=== PATIENT | female | born 1965 | race Caucasian/White ===

== ENCOUNTER 2024-03-31 10:47 | Emergency (ER) | payer OTHER, SELFPAY ==
[2024-03-31 10:50] VITALS: BP 146/91
--- NOTE | 2024-03-31 11:36 | ED.GENMED ---
History of Present Illness
General
Chief Complaint: Abdominal Pain
Source: patient
Exam Limitations: none
Time Seen by Provider: 03/31/24 11:03
Nursing documentation reviewed up to this point in time: agreed with
History of Present Illness
History of Present Illness:
58-year-old female presenting with 2 days of left lower abdominal pain. Symptoms initially started evening when she had multiple bouts of diarrhea and noticed pain in her left lower abdomen. Pain persisted throughout the day yesterday and
was even worse this morning prompting her visit to the emergency department. Patient states it feels like a squeezing/intense pain in her left lower abdomen with some radiation into her left thigh. Pain is definitely worse with movement. No known
inciting injury/trauma. Patient denies any associated fevers, chills, nausea, vomiting, or urinary symptoms. No chest pain or shortness of breath. Patient denies any hematochezia or melena.
Patient with known history of thrombocytosis of unknown origin and remote history of ovarian cyst. Patient has been postmenopausal for 5 years now. No history of abdominal surgeries.
Past History
Past History
ED Past Medical History: Other (Ovarian cyst) and Other (Thrombocytosis)
Review of Systems
Review of Systems
Allergies reviewed?: Yes
All Other Systems: ROS reviewed and negative except as documented in HPI and ROS
Phy Exam
Physical Exam
Physical Exam:
Vitals: Hypertensive, otherwise vital signs stable. Afebrile
General: Patient is mildly uncomfortable due to pain, nontoxic-appearing
Skin: Warm and dry, no rashes or lesions
Head: Normocephalic, atraumatic
Eyes: Sclera nonicteric. EOMs intact. No nystagmus.
Throat: Protecting airway
Neck: Normal ROM, no cervical spine tenderness, no meningismus
Cardiac: Regular rate and rhythm, no murmurs.
Pulm: Normal respiratory effort, no wheezes, rales, rhonchi heard on exam.
Abdomen: Abdomen soft. Moderate tenderness left lower quadrant with some mild tenderness in right lower quadrant. No rebound tenderness or guarding. No CVA tenderness. No rashes
Extremities: No evidence of cyanosis or edema. Great distal pulses
Neuro: AAOx3. CN II-XII intact. No focal neurologic deficits.
Psychiatric: Normal affect.
Course
Orders/Labs/Results
Orders:
Orders
03/31/24 11:36
0.9% Sodium Chloride 1000 ml [Nss] 1,000 ml IV BOLUS
Ketorolac [Toradol] 15 mg IV NOW STA
Ondansetron Injectable [Zofran] 4 mg IV NOW STA
03/31/24 11:38
CT Abd/Pel (IV only)-DH only Urgent
Comment: hx left ovarian cyst
Reason For Exam: LLQ pain, +diarrhea
03/31/24 11:47
Complete Blood Count/With Diff Urgent
Comprehensive Metabolic Panel Urgent
Lipase Urgent
03/31/24 12:03
Urinalysis Reflex To Culture Urgent
Date Specimen was Collected: 03/31/24
Time Specimen was Collected: 12:02
03/31/24 13:52
Amoxicillin 875 mg/Clav 125 mg [Augmentin 875 mg/125 mg] 1 tablet PO NOW STA
Abnormal Lab Results
03/31/24
11:47
WBC 11.2 H 10^3/uL
(4.8-10.8)
Plt Count 498 H 10^3/uL
(130-400)
MPV 11.4 H fL
(7.4-10.4)
Absolute Neuts (auto) 8.9 H 10^3/uL
(1.4-6.5)
Absolute Lymphs (auto) 1.1 L 10^3/uL
(1.2-3.4)
Absolute Monos (auto) 0.9 H 10^3/uL
(0.1-0.6)
Neutrophils % 80.0 H %
(42.2-75.2)
Lymphocytes % 10.0 L %
(20.5-51.1)
Glucose 122 H mg/dl
(70-99)
03/31/24 11:47
03/31/24 11:47
Vital Signs
Initial and Last Documented VS:
Initial Vital Signs
Temp Pulse Resp BP Pulse Ox
98.9 F 87 20 146/91 98
03/31/24 10:50 03/31/24 10:50 03/31/24 10:50 03/31/24 10:50 03/31/24 10:50
Last Documented Vital Signs
Temp Pulse Resp BP Pulse Ox
98.9 F 83 16 123/76 99
03/31/24 10:50 03/31/24 14:00 03/31/24 14:00 03/31/24 14:00 03/31/24 14:00
MDM/Problems Addressed
Differential Diagnosis Includes:
Not limited to: Diverticulitis, appendicitis, colitis, UTI, kidney stone, ovarian cyst,
MDM/Problems Addressed:
58-year-old female presenting with 2 days of left lower quadrant abdominal pain and diarrhea. No known fevers or chills. No nausea or vomiting. Mildly hypertensive on arrival, otherwise vital signs stable. Patient is afebrile. Physical exam as
above. Patient is nontoxic-appearing, in mild distress due to pain. Abdomen is soft moderate tenderness in left lower quadrant. No rebound tenderness or guarding. No tenderness at McBurney's point. Heart regular rate and rhythm. Lungs clear
bilaterally. Patient is perfusing well. Will check labs, CT abdomen/pelvis, urine. Will give Toradol, fluids, Zofran. Will closely monitor and reassess.
Labs obtained. Mild leukocytosis of 11.2. Otherwise no clinically significant abnormalities. She does have a thrombocytosis of 498,000 although patient states this is chronic with an unknown etiology after following with hematology. Urine shows
no signs of infection or blood. CT pending. Patient does report significant burning pain following dose of Toradol.
CT abdomen/pelvis shows acute diverticulitis of the sigmoid colon without any evidence of abscess or perforation. No other acute abnormality in abdomen noted. Given diverticulitis seems uncomplicated and patient is afebrile with a very mild
leukocytosis and pain under well control�feel she is good candidate for outpatient antibiotic treatment. Will give first dose of Augmentin in emergency department. Will discharge with 10-day course of Augmentin. Return precautions discussed at
length. Patient will follow-up with primary care. Did provide referral for GI doctor given this is her first case of diverticulitis and she is due for colonoscopy soon. Case discussed with attending physician
Chronic conditions affecting care:
N/A
Acute Exacerbation and/or Progression of Chronic Illness:
Acute diverticulitis
*Radiology
Radiology exam reviewed: preliminary read by ED provider and radiology read reviewed
*Pulse Oximetry
Patient hypoxic: no
*EKG
Interpreted by ED Provider?: NA
*Instructional Technology Coordinator Interpretation
Rate: Instructional Technology Coordinator- N/A
*Critical Care Note
Total Time (30-74mins, 75-104mins- exclusive of procedures): Not Applicable
Update Note
Update Note:
03/31/24 6:30PM: Patient did call back a few hours following discharge reporting return of pain. Reviewed instructions for patient to take Tylenol and/or Motrin as needed. Did send short course of Percocet after discussion with attending. Advised
patient to return to the emergency department any acute worsening symptoms, fevers, intractable pain, intractable nausea/vomiting, or worsening abdominal pain. Patient expressed understanding. Confirmed transmission of prescription with [facility]
ED Attending Note
-
Portions of this chart may have been created with voice recognition software.� Occasional wrong word or��sound alike� substitutions may have occurred due to the inherent limitations of voice recognition software.
Discharge Plan
Departure
Patient Disposition: Home (Routine Discharge)
Date of Disposition: 03/31/24
Time of Disposition: 13:52
Patient with high blood pressure during this ER visit?: Yes
Condition: Good
Covid-19: Not Applicable
Discharge Problem:
Acute diverticulitis
Instructions: Clear Liquid Diet, Low Fiber Diet, Diverticulitis (DC), BLOOD PRESSURE
Prescriptions:
New
amoxicillin-pot clavulanate 875-125 mg tablet
1 tab PO BID 10 Days Qty: 20 0RF
oxycodone-acetaminophen [Percocet] 5-325 mg tablet
1 tab PO Q6HPRN PRN (Reason: pain) Qty: 6 0RF
Referrals:
Ayla Hsu MD [Family Provider] -
Jazmin Carl MD [Active] - Call in 1-3 days for appt
Activity Restrictions/Additional Instructions:
RETURN TO THE EMERGENCY DEPARTMENT WITH ANY FEVERS, CHILLS, WORSENING ABDOMINAL PAIN, INTRACTABLE NAUSEA/VOMITING, OR ANY OTHER CONCERNS
-Your prescription has been sent to the pharmacy. You should take this twice a day for the next 10 days.
-As discussed�it is important stay well-hydrated. You should adhere to a clear liquid diet over the next 2 days and advance to low fiber. You can take Tylenol/Motrin as needed for any discomfort.
-You should follow-up your primary care provider for further evaluation/management to ensure that symptoms are improving. I have also provided you a contact information for a GI doctor that you can follow-up with for further evaluation.
Monitor your symptoms closely and return to the emergency department with any acute worsening/new symptoms.
Interventions
Interventions:
*Risk Screen - Suicide Last Done: 03/31/24 10:50
*General Assessment Last Done: 03/31/24 10:50
*Neglect/Abuse Screening Last Done: 03/31/24 10:50
ED- Fall Risk Assessment Last Done: 03/31/24 12:00
*ED COVID-19 Vaccine History Last Done: 03/31/24 12:00
*Nursing Disposition Last Done: 03/31/24 14:14
[facility]-Edncvl-[id number] Assessment Last Done: 03/31/24 12:00
Discharge Date and Time
Discharge Date/Time: 03/31/24 14:14
Print Language: GERMAN
[2024-03-31] MEDS: ZOFRAN 4 MG IV (11:46)
[2024-03-31] MEDS: TORADOL 15 MG IV (11:46)
[2024-03-31] MEDS: NSS 1000 IV (11:46)
[2024-03-31 12:13] LABS: Urine Albumin Negative (Neg - Trace); Urine Bilirubin Negative (Negative); Urine Character Clear (Clear); Urine Color Yellow; Urine Glucose Negative (Negative); Urine Ketone Negative (Negative); Urine Leukocyte Negative (Negative); Urine Nitrite Negative (Negative); Urine Occult Blood Negative (Negative); Urine Urobilinogen Negative (Neg - 1+)
[2024-03-31 12:14] LABS: % Basophils 0.4 % (0-2); % Eosinophils 0.8 % (0-6); % Immature Granulocytes 0.4 % (0-0.5); % Monocytes 8.4 % (1.7-9.3); Absolute Basophils 0.1 10^3/uL (0-0.2); Absolute Eosinophils 0.1 10^3/uL (0-0.7); Absolute Lymphocytes 1.1 10^3/uL (1.2-3.4); Absolute Monocytes 0.9 10^3/uL (0.1-0.6); Absolute Neutrophils 8.9 10^3/uL (1.4-6.5); Hematocrit 41.8 % (37.0-47.0); Hemoglobin 13.9 g/dL (12.0-16.0); Mean Corp Hgb Conc. 33.3 g/dL (33.0-37.0); Mean Corpuscular Hgb 28.4 pg (27.0-31.0); Mean Corpuscular Volume 85.5 fL (81.0-99.0); Mean Platelet Volume 11.4 fL (7.4-10.4); Nucleated Red Blood Cells % 0 %; Platelet Count 498 10^3/uL (130-400); Red Blood Cell Count 4.89 10^6/uL (4.20-5.40); Red Cell Dist. Width 14.2 % (11.5-14.5); White Blood Cell Count 11.2 10^3/uL (4.8-10.8)
[2024-03-31 12:23] LABS: ALT (SGPT) 34 U/L (0-35); AST (SGOT) 24 U/L (14-36); Albumin 4.3 g/dl (3.5-5.0); Alkaline Phosphatase 92 U/L (38-126); Blood Urea Nitrogen 10 mg/dl (7-17); Calcium 9.4 mg/dl (8.4-10.2); Carbon Dioxide 29 mmol/L (22-30); Chloride 98 mmol/L (98-107); Glucose 122 mg/dl (70-99); Lipase 50 U/L (23-300); Potassium 4.8 mmol/L (3.5-5.1); Sodium 136 mmol/L (135-145); Total Bilirubin 0.8 mg/dl (0.2-1.3); eGFR > 60.00
[2024-03-31 14:00] VITALS: BP 123/76
[2024-03-31] MEDS: AUGMENTIN 875 MG/125 MG 1 TABLET PO (14:12)
== END 2024-03-31 14:14 | disposition home or self-care (01) ==
LOC: EMR 10:47
PROVIDERS: Physician Assistant; EMERGENCY PHYSICIAN Emergency Medicine; FAMILY PHYSICIAN Family Medicine
DX: K57.32 Diverticulitis of large intestine without perforation or abscess without bleeding (principal); D75.839 Thrombocytosis, unspecified
CPT/HCPCS: 99284; 96374; 96375; 96361; 74177; 80053; 81003; 83690; 85025; Q9967